=== PATIENT | female | born 1995 | race Caucasian/White ===

== ENCOUNTER 2025-04-11 22:23 | Inpatient (IN) | payer OTHER, SELFPAY ==
[2025-04-11 22:27] VITALS: BP 165/88; PULSE 118; RESP 20; O2SAT 97
--- NOTE | 2025-04-11 22:29 | ED.GENADUL_ITS ---
Discharge Plan Disposition Patient Disposition: Admit to [facility] Condition: Good Discharge Details Clinical Impression: Uterine contractions Admit Date/Time: 04/11/25 22:48 Admit Provider: Jhoana Dumont Attending Provider: Jhoana Dumont Primary Care Provider: Janelle,[facility] ED Provider: Tori Nelson Discharge Data Discharge Date/Time-TO BE ENTERED AT DEPARTURE: 04/11/25 22:44 HPI General Mode of arrival: ambulatory . Date/Time Provider Initiated Documentation: 04/11/25 22:29 . Limitations to Documentation: no limitations . Information obtained by: patient . HPI Narrative: 29yo F presenting with concern for active labor. Reports being 37w , 3 prior term births, vacationing in the area this week and gets care in [place]. States uncomplicated ellis , denies gestational debities, preeclampsia, or other complication. Water broke about 40 minutes ago, clear fluid. Having contractions about 5 minutes apart, lasting about 2 minutes at a time. Not feeling pressure or the urge to push. No other medical complaints. Related Data Allergies Allergy/AdvReac Type Severity Reaction Status Date / Time No Known Allergies Allergy Verified 04/11/25 23:40 Review of Systems Narrative: see HPI Exam Narrative Exam Narrative: General: Alert, well appearing, well nourished, in no acute distress. Head: Normocephalic, atraumatic Neck: Trachea midline, ?Neck supple. Cardiac: Well perfused. Resp: No respiratory distress. . : ?Gravid. No palpable ctx at this time. Medical Decision Making 29yo F presenting with concern for active labor. Reports being 37w , 3 prior term births, uncomplicated ellis ; vacationing in the area this week and gets care in [place]. Water broke about 40 minutes ago, clear fluid and she is having contractions about 5 minutes apart, lasting about 2 minutes at a time. No sensation of pressure or urge to push. Well appearing on exam, gravid abdomen with no palpable contraction. Delivery not imminent. Hypertensive SBP 160's and tachycardiac to 110's on arrival. Appropriate to go to L&D; taken upstairs in wheelchair. PFSH All Active Problems (Updated 04/12/25 @ 00:08 by Jhoana Dumont MD) Normal labor (Acute) cardiac anomaly affecting , antepartum (Acute) Obesity (Chronic) Marijuana use (Acute) Tobacco use (Acute) Anxiety and depression (Chronic) Uterine contractions (Acute) Social History Smoking/Tobacco Use Status: Current every day Tobacco Type: cigarettes Years smoked: 13 Tobacco: How many years used: 13 Smoking risk assessment performed?: Yes Alcohol Intake: current Drug use: Occasionally Substance use type: marijuana Housing: house Do you feel safe at home: Yes Do you feel safe in your relationship?: Yes History History 5 Para 3 Hx # Term Pregnancies 3 Multiple births Hx # Pregnancies Ectopic pregnancies AB induced Hx Number of Living Children 3 AB spontaneous
[2025-04-11 22:44] VITALS: BP 165/88; PULSE 118; RESP 20; O2SAT 97
[2025-04-11 23:11] VITALS: BP 121/64; PULSE 100
[2025-04-11 23:14] LABS: HCT 31.9 % (36.0-46.0); HGB 9.8 g/dL (11.2-15.7); MCH 22.8 pg (27.0-33.0); MCHC 30.7 % (32.0-36.0); MPV 11.7 fL (8.0-11.0); Platelet Count 270 10^3/uL (130-400); RBC 4.29 10^6/uL (3.93-5.22); RDW 17.8 % (11.7-14.6); RDW-SD 46.5 fL; WBC 14.26 10^3/uL (4.4-10.8)
--- NOTE | 2025-04-11 23:22 | ANES.PREOP_ITS ---
General Info Date of Service Date Performed: 04/11/25 Height: 5 ft 6 in Weight: 123.831 kg Body Mass Index (BMI): 44.0 Meds Allergies and Home Medications Allergies Allergy/AdvReac Type Severity Reaction Status Date / Time No Known Allergies Allergy Verified 04/11/25 23:40 Current Visit Medications: Current Medications Generic Name Dose Route Start Last Admin Trade Name Armandoq PRN Reason Stop Dose Admin Fentanyl/Ropivacaine 200 ml 04/11/25 23:30 Fentanyl/Ropivacaine 2 Mcg/Ml And 0.1% 200 Ml Cadd Cassette EP DIRECTED MERISSA Ringer's Solution 500 mls @ 500 mls/hr 04/11/25 23:18 IV 04/12/25 00:17 BOLUS ONE IV Miscellaneous Supplies 1 each 04/11/25 23:00 Iv Access IV DIRECTED MERISSA Sodium Chloride 0 ml 04/11/25 22:47 Normal Saline Flush 10 Ml Syr IVP PRN PRN Sodium Chloride 0 ml 04/12/25 08:30 Normal Saline Flush 10 Ml Syr IVP BID MERISSA Sodium Chloride 0 ml 04/11/25 22:47 Normal Saline 10 Ml Vial IJ DIRECTED PRN PFSH Active Problems Active Problems: Problem Status Onset Code Uterine contractions Acute O47.9 Tobacco Smoking/Tobacco Use Status: Current every day Tobacco Type: cigarettes Smoking cigarettes per day: 5 Years smoked: 13 Alcohol Alcohol Intake: current Substance Use Substance use: Occasionally Substance use type: marijuana Vital Signs and Lab Results Vital Signs Most Recent Vital Signs in EMR: Most Recent Vital Signs Pulse Resp BP Pulse Ox 100 H 20 121/64 97 04/11/25 23:11 04/11/25 22:44 04/11/25 23:11 04/11/25 22:44 Lab Results 04/11/25 23:05 Blood Type / Crossmatch: 2 Antibody Screen Pending Today Complete Blood Count: 2 WBC, (4.4-10.8) 14.26 10^3/uL H Today, 23:05 RBC, (3.93-5.22) 4.29 10^6/uL Today, 23:05 Hgb, (11.2-15.7) 9.8 g/dL L Today, 23:05 Hct, (36.0-46.0) 31.9 % L Today, 23:05 Plt Count, (130-400) 270 10^3/uL Today, 23:05 Anesthesia Assessment and Plan Anesthesia History Personal History: No History of Anesthesia Complications Family History: No Family History of Anesthesia Complications Exercise Tolerance Exercise Tolerance: Metabolic Equivalents>4 Pertinent Negatives Pertinent Negatives: No Major Cardiovascular Symptoms or Complaints and No Major Pulmonary Symptoms or Complaints Cardiac & Pulmonary Exam Cardiac Exam: Normal S1/S2 Heart Sounds Pulmonary Exam: Clear Bilateral Breath Sounds Implantable Cardiac Device Does patient have a Pacemaker or an ICD?: No Airway Exam Known Difficult Airway: No Mallampati Class: 3 Mouth Opening: Normal (> 3cm) Thyromental Distance: Greater than 3 cm Neck Range of Motion: Full ROM Neck Circumference: Thick Teeth Condition: Normal Dentition ASA Classification ASA Score: ASA 3 Emergency Case?: No NPO Status NPO Status: Full Stomach () Status Status: Confirmed Anesthesia Plan Resuscitation Status: Full Code Anesthesia Technique: Labor Epidural Airway Planned: Natural Airway Monitors Used: Standard Monitors
[2025-04-11 23:25] LABS: MCV 74 fL (80-95)
--- NOTE | 2025-04-11 23:40 | W.PM.OBHPL1 ---
Date of service: 04/11/25 Time of Service: 11:30 Assessment and Plan Assessment and plan (1) Uterine contractions: Status: Acute Assessment and plan: P3 @37.3wks with rupture of membranes and early labor. She did not receive care here as she is currently traveling. However we were able to get verbal report of her history and are awaiting the faxed records. She desires an epidural as her last labor went very quickly. Anesthesia is notified. Will draw basic labs and await records. Anticipate NVD. (2) cardiac anomaly affecting , antepartum: Status: Acute Assessment and plan: Per verbal report, the pt saw cardiology and is only recommended to f/u at 2wks after . (3) Anxiety and depression: Status: Chronic OB-HPI Labor/Delivery History of Present Illness Reason for Visit: in labor, not from here Chief Complaint: Uterine Contractions; Suspected Rupture of Membranes , Associated Signs and Symptoms of Suspected ROM: gush of fluid. SPIKE Calculator Estimated Delivery Date Method WG Current Estimate 04/29/25 Manual Infant Delivery Date-Baby A 04/12/25 37w 4d Comments: Pt reports gush of fluid around 9pm. They were visiting family in [place]. She arranged for her sister to watch their kids and headed this direction and on the way contractions started, still pretty mild, every few minutes. No bleeding. Feeling normal movement today. History of Present Expected Delivery Route/Plan VD Specific Issues/Plan 1. Smoker: 3-4 cigs/day 2. MJ use 3. Obesity 4. Anxiety/depression - no meds/stable 5. Mild anemia - on iron 6. Rh neg - rhogam 7. heart concern - Echo: Restrictive ductus arteriosus, mild R heart dilation - Cardiology recommends f/u at 2wks of life, nothing special at delivery NIPT: low risk, female GBS neg Review of Systems Constitutional Constitutional: Reports system reviewed and no additional complaints, except as documented Gastrointestinal Gastrointestinal: Denies nausea and Denies vomiting Genitourinary Genitourinary: Reports system reviewed and no additional complaints, except as documented Musculoskeletal Comments: No regular contractions PFSH All Active Problems (Updated 04/12/25 @ 00:08 by Jhoana Dumont MD) Normal labor (Acute) cardiac anomaly affecting , antepartum (Acute) Obesity (Chronic) Marijuana use (Acute) Tobacco use (Acute) Anxiety and depression (Chronic) Uterine contractions (Acute) Social History Smoking/Tobacco Use Status: Current every day Tobacco Type: cigarettes Years smoked: 13 Tobacco: How many years used: 13 Smoking risk assessment performed?: Yes Alcohol Intake: current Drug use: Occasionally Substance use type: marijuana Housing: house Do you feel safe at home: Yes Do you feel safe in your relationship?: Yes History History 5 Para 3 Hx # Term Pregnancies 3 Multiple births Hx # Pregnancies Ectopic pregnancies AB induced Hx Number of Living Children 3 AB spontaneous Meds Allergies and Home Medications Allergies Allergy/AdvReac Type Severity Reaction Status Date / Time latex AdvReac Mild Hives Verified 04/12/25 01:32 Exam Physical Exam Vital signs: Pulse Resp BP Pulse Ox 100 H 20 121/64 97 04/11/25 23:11 04/11/25 22:44 04/11/25 23:11 04/11/25 22:44 Vital Signs Reviewed: Yes Detailed Labor and Delivery Exam Dilation: 1 Ferraro Score: Cervical Points Exam 0 1 2 3 Dilation Closed 1-2cm 3-4 cm 5-6cm Effacement 0-30% 40-50% 60-70% 80% Consistency Firm Medium Soft Station -3 -2 -1,0 +1,+2 Position Posterior Mid Anterior Comments: Exam by CNM, pt grossly ruptured, clear fluid Fetus A Heart Rate Baseline: 155 Monitor Accelerations: 15 X 15 Monitor Decelerations: None Variability: Moderate (6-25 BPM) Presentation: Cephalic (confirmed on bedside sono by CNM) Date of Membrane Rupture: 04/12/25 Time of Membrane Rupture: 21:00 Detailed HEENT Exam Head: Present normocephalic and atraumatic Detailed Abdominal Exam Comments: gravid, nontender Detailed Neurological Exam Neurological: Present alert, oriented X3 and CN II-XII intact DetailedPsychiatric Exam Psychiatric: Present normal affect, normal thought process and cooperative Results Results Group Beta Strep: Negative Abnormal Lab Findings: Abnormal Labs 04/11/25 23:05 WBC 14.26 H Hgb 9.8 L Hct 31.9 L MCV 74 L MCH 22.8 L MCHC 30.7 L RDW 17.8 H MPV 11.7 H Risk Assessment Risks Reviewed Risks Reviewed Upon Admission: Yes
[2025-04-11 23:57] VITALS: BMI 44.0
[2025-04-12] VITALS (190 sets, daily range): BP systolic 101–137; BP diastolic 55–76; PULSE 0–123; RESP 12–17; TEMP 36.3–37.5; O2SAT 84–100
--- NOTE | 2025-04-12 00:44 | W.ANESNEU ---
Epidural/Spinal Catheter Date Performed: 04/12/25 Procedure Start: 00:02 Procedure Stop: 00:45 Requesting Provider: Jhoana Dumont Procedure Location: Obstetrics Reason Performed: Labor Epidural Standard Monitors Applied: Blood Pressure, SpO2 and See EMR for corresponding vital signs Patient Position: Sitting Sedation Given (Indicate Dose Given): No Sedation given Patient Mental Status: Awake Sterility: Hand Hygiene, Surgical Cap, Surgical Mask, Sterile Gloves, Sterile Drape/Sheet and Chlorhexidine Procedure Location: L4-L5 Interspace Epidural Needle: Tuohy 18 Gauge Needle Length: 3.5 Inch Needle Approach: Midline Epidural Procedure: Skin Prepped, Sterile Drape Placed, 1% Lidocaine to skin and subcutaneous tissue with 25G needle, Tuohy Needle placed, JUANIS to Saline Used, Epidural Catheter Placed, Negative Heme, Negative CSF Flow and Tuohy Needle Removed Catheter Placed?: Catheter Placed Test Dose (Indicate Dose Given): 3ml 1.5% Lidocaine with 1:200K Epinephrine Given (@0014) and Negative Test Dose Loss of Resistance Depth (cm): 9 Catheter depth at skin (cm): 15 Dressing: Sorbaview Dressing Placed and Mastisol Used Epidural Provider Bolus (Indicate Dose Given): Total bolus dose given in 3-5 ml divided doses (@0020) and Total Ropivacaine 0.1% with Fentanyl 2mcg/ml Given from pump. (ml) Dose:: 5ml + 3ml =8 mL Additives (Indicate Dose Given ): None Infusion Medication: Medication Infusion Began Medication Infusion: Ropivacaine 0.1% with Fentanyl 2mcg/ml (@0020) Maintenance Infusion Rate (ml/hour): 10 PCEA Bolus Dose (ml): 5 Post Procedure Pain score (0-10): 0 Block Level: N/A Paresthesia: Left Paresthesia Duration: Transient Ultrasound: Not Used Number of Attempts (See previous attempts in note section): 2 Procedure Tolerated: No Complications and Patient tolerated well Procedure Outcome: Successful Procedure Comment:: Difficult to definitively palpate spinous processes, unsuccessful at L3-4, success at L4-5, JUANIS at needle hub. Performed By: Shamika Hobbs
[2025-04-12] MEDS: FentaNYL/ROPIvacaine 2 mcg/ml and 0.1% 200 ML CADD Cassette EP (00:45)
[2025-04-12] MEDS: Lactated Ringers 1,000 ML 125 ML IV (00:50)
[2025-04-12] MEDS: Oxytocin/Normal Saline 30 UNIT/500 ML BAG 2 UNITS IV (01:56)
[2025-04-12] MEDS: Lactated Ringers 250 ML 500 ML IV (02:03)
--- NOTE | 2025-04-12 07:15 | W.PM.OBNL1 ---
Date of service: 04/12/25 Time of Service: 07:15 Pelvic Exam Dilation: 3 Effacement (%): 70 station: -4 Comments: Cephalic presentation confirmed by bedside sono. Contractions Contraction Frequency(min): 1-4 Fetus A Heart Rate Baseline: 135 Presentation: Cephalic Variability: Moderate (6-25 BPM) Categories: Category I Accelerations: 15 X 15 Decelerations: None Assessment and Plan Assessment and plan (1) Normal labor: Status: Acute Assessment and plan: Will get up and start changing positions to allow for baby to come into the pelvis better. Objective Abnormal lab results 04/11/25 Range/Units 23:05 WBC 14.26 H (4.4-10.8) 10^3/uL Hgb 9.8 L (11.2-15.7) g/dL Hct 31.9 L (36.0-46.0) % MCV 74 L (80-95) fL MCH 22.8 L (27.0-33.0) pg MCHC 30.7 L (32.0-36.0) % RDW 17.8 H (11.7-14.6) % MPV 11.7 H (8.0-11.0) fL Temp Pulse Resp BP Pulse Ox 99.0 F 85 17 125/70 99 04/12/25 06:53 04/12/25 07:14 04/12/25 04:20 04/12/25 06:54 04/12/25 00:16 Laboratory Results WBC 14.26 10^3/uL (4.4-10.8) H 04/11/25 23:05 RBC 4.29 10^6/uL (3.93-5.22) 04/11/25 23:05 Hgb 9.8 g/dL (11.2-15.7) L 04/11/25 23:05 Hct 31.9 % (36.0-46.0) L 04/11/25 23:05 MCV 74 fL (80-95) L 04/11/25 23:05 MCH 22.8 pg (27.0-33.0) L 04/11/25 23:05 MCHC 30.7 % (32.0-36.0) L 04/11/25 23:05 RDW 17.8 % (11.7-14.6) H 04/11/25 23:05 Plt Count 270 10^3/uL (130-400) 04/11/25 23:05 MPV 11.7 fL (8.0-11.0) H 04/11/25 23:05 ABO/Rh A Negative 04/11/25 23:05 Antibody Screen NEGATIVE 04/11/25 23:05 Vital Signs Reviewed: Yes Subjective Interval history since last seen: Pt received her epidural and was able to get some rest. When she set up to use the bedpan she felt increased pelvic pressure. Still leaking some clear fluid. Results Hemoglobin/Hematocrit: Hgb 9.8 g/dL (11.2-15.7) L 04/11/25 23:05 Hct 31.9 % (36.0-46.0) L 04/11/25 23:05 Abnormal Lab Findings: Abnormal Labs 04/11/25 23:05 WBC 14.26 H Hgb 9.8 L Hct 31.9 L MCV 74 L MCH 22.8 L MCHC 30.7 L RDW 17.8 H MPV 11.7 H
--- NOTE | 2025-04-12 12:17 | W.OBDELIVERY ---
Date of service: 04/12/25 Time of Service: 10:30 OB Labor/ Delivery Information Providers Doctor: Jhoana Dumont Nurse: Jeannine Loja Nurse: Lavonne Hunt Labor/Delivery Information Number of Babies in Womb: 1 Steroids Given: None Reason Steroids Not Administered: N/A Group Beta Strep: Done-Result Unknown Antibiotics Administered: No Blood Type: A- Medication in Delivery: ropivicaine, pitocin Maternal Complications: None Note: Jolly is a P3 who experienced PROM at 37.3wks. She received an epidural in anticipation of pain management and was started on pitocin. About 9hrs later she was found to be fully dilated. She pushed twice to deliver the infant's head in REGULO position followed by the shoulders and the rest of the body. The baby was placed on mom's abdomen. After >1min the cord was clamped x2 and cut. Cord blood collected. The placenta delivered with gentle cord traction and fundal massage and appeared intact. Fundus was firm with good hemostasis. Mom and baby stable at time of note. Stages of Labor Onset of Labor Date: 04/11/25 Onset of Labor Time: 21:02 Complete Dilatation Date: 04/12/25 Complete Dilatation Time: 10:05 Labor - Stage 1 Duration: 13 hours and 3 minutes ROM Baby A: 04/11/25 ROM Baby A: 21:02 Infant Delivery Date-Baby A: 04/12/25 Infant Delivery Time-Baby A: 10:33 Labor Stage 2 Duration: 28 minutes Placenta Delivery Date-Baby A: 04/12/25 Placenta Delivery Time-Baby A: 10:37 Labor-Stage 3 Duration: 4 minutes Total Length of Labor-Baby A: 13 hours and 31 minutes Placenta Cultured: No Placenta Status: Delivered Baby A Infant Gender: Female Gestational Status: Early Term (37-38.6 wks) Gestational Age in Weeks/Days: 37 Weeks and 4 Days Score-1 Minute Interval(Baby A) Heart Rate-1 minute: 100 BPM or Greater Respiratory Effort- 1 minute: Spontaneous/Strong Cry Muscle Tone-1 minute: Active Movement Reflex Response-1 minute: Prompt Response Color-1 minute: Bluish Hands or Feet Total Score-1 minute: 9 Score-5 Minute Interval(Baby A) Heart Rate- 5 minute: 100 BPM or Greater Respiratory Effort-5 minute: Spontaneous/Strong Cry Muscle Tone-5 minute: Active Movement Reflex Response-5 minute: Prompt Response Color-5 minute: Bluish Hands or Feet Total Score- 5 minute: 9
[2025-04-12] MEDS: Hamamelis Leaf/Glycerin 100 EACH BOX PR (12:57)
[2025-04-12] MEDS: Ibuprofen 600 MG TAB PO ×2 (12:57→18:57)
[2025-04-12] MEDS: Dibucaine 1% 28 GM TUBE TP (12:57)
[2025-04-12] MEDS: Acetaminophen 325 MG TAB 650 MG PO ×2 (13:40→17:41)
--- NOTE | 2025-04-12 16:47 | W.ANESPOSTOP ---
Postoperative Evaluation Date, Time and Location Date Performed: 04/12/25 Time Performed: 16:44 Patient Location: Obstetrics Vital Signs Most Recent Imported Vital Signs: Most Recent Vital Signs Temp Pulse Resp BP Pulse Ox 36.5 C 76 12 101/56 L 96 04/12/25 14:58 04/12/25 14:58 04/12/25 14:58 04/12/25 14:58 04/12/25 14:58 Pain Score Most Recent Pain Score: Most Recent Pain Score Pain Level 4 04/12/25 13:40 Assessment Mental Status: Awake (Alert & Oriented to Patient Baseline) Airway and Respiratory Function: Patent airway with normal (patient baseline) respiratory exam Cardiovascular Function: Hemodynamically Stable Hydration Status: Adequately Hydrated Nausea & Vomiting: No Nausea or Vomiting Pain: Pain is tolerable per patient Peripheral Nerve Block: Patient did not receive a nerve block
[2025-04-13 01:25] VITALS: BP 116/72; PULSE 75; RESP 17; TEMP 36.8; O2SAT 98
[2025-04-13] MEDS: Ibuprofen 600 MG TAB PO (07:42)
[2025-04-13 09:00] VITALS: BP 119/76; PULSE 70; RESP 12; TEMP 36.5; O2SAT 99
--- NOTE | 2025-04-13 09:27 | DSE_ITS ---
Date of service: 04/13/25 Time of Service: 09:27 DS: Diagnosis Discharge Diagnosis (1) care and examination immediately after delivery: Status: Acute Asessment and Plan: P4 PPD#1 s/p NVD at 37.4wks. She is doing well almost 24hrs pp. Anticipate d/c home after the baby is cleared at 24hrs. (2) cardiac anomaly affecting , antepartum: Status: Acute Asessment and Plan: Will follow up with cardiology back at home. (3) Anxiety and depression: Status: Chronic Asessment and Plan: Using coping skills Discharge Plan Disposition Patient Disposition: Home Condition: Stable Discharge Details Reason For Visit: in labor, not from here Admit Date/Time: 04/11/25 22:48 Admit Provider: Jhoana Dumont Attending Provider: Jhoana Dumont Primary Care Provider: Janelle,[facility] Course Hospital Course: Pt arrive with ROM, received an epidural for anticipated pain management, was started on pitocin for augmentation and proceeded to have an uncomplicated vaginal delivery and course. Discharge Instructions Activity:: Nothing in the vagina Equipment/Supplies:: No Equipment Needed Diet:: As Tolerated Discharge Orders Discharge Orders: Discharge Order (Routine); Ordered 04/13/25 Ordered By: Jhoana Dumont OB:DS Summary Summary Episiotomy Description: None Contraception Discussed Contraception Discussed: Yes Contraceptive Plan: Undecided, [place] Infant Gender-Baby A: Female weight: 6 lb 11.938 oz Status at Discharge Functional status at discharge: independent ambulation Overall status at discharge: patient is back to baseline Mental Status: mental status grossly normal Speech and Movement: speech and movement normal Mood: congruent mood Affect: normal affect Exam Physical Exam Vital signs: Temp Pulse Resp BP Pulse Ox 98.2 F 75 17 116/72 98 04/13/25 01:25 04/13/25 01:25 04/13/25 01:25 04/13/25 01:25 04/13/25 01:25 [facility] All Active Problems (Updated 04/13/25 @ 09:27 by Jhoana Dumont MD) care and examination immediately after delivery (Acute) Normal labor (Acute) cardiac anomaly affecting , antepartum (Acute) Obesity (Chronic) Marijuana use (Acute) Tobacco use (Acute) Anxiety and depression (Chronic) Uterine contractions (Acute) Social History Smoking/Tobacco Use Status: Current every day Tobacco Type: cigarettes Years smoked: 13 Tobacco: How many years used: 13 Smoking risk assessment performed?: Yes Alcohol Intake: current Drug use: Occasionally Substance use type: marijuana Housing: house Do you feel safe at home: Yes Do you feel safe in your relationship?: Yes History History 5 Para 3 Hx # Term Pregnancies 3 Multiple births Hx # Pregnancies Ectopic pregnancies AB induced Hx Number of Living Children 3 AB spontaneous DS: Data Vitals/I&O Vitals and I&O: Vital Signs Temperature 98.2 F 04/13/25 01:25 Temperature Source Forehead 04/13/25 01:25 Pulse 75 04/13/25 01:25 Pulse Rhythm Regular 04/12/25 19:30 Respiratory Rate 17 04/13/25 01:25 Respiratory Depth Normal 04/12/25 19:30 Blood Pressure 116/72 04/13/25 01:25 Blood Pressure Mean 86 04/13/25 01:25 Blood Pressure Position Sitting 04/11/25 22:27 Pulse Oximetry 98 04/13/25 01:25 Oxygen Delivery Method Room Air 04/11/25 22:27 Oxygen Flow Rate 0 04/11/25 22:27 Pain Level 5 04/13/25 07:42 Intake & Output 04/12/25 04/12/25 04/13/25 11:59 23:59 11:59 Intake Total 27.133 / 27.133 Output Total 800 / 800 Balance -772.867 / -772.867 Intake: IV 27.133 / 27.133 Output: Urine 800 / 800 Other: Urine Color Pale Yellow Yellow Urine Appearance Clear Urine Odor None Comment OOB to bathroom
== END 2025-04-13 12:20 | disposition home or self-care (01) | DRG 807 ==
LOC: ER 22:32 → BCD 22:33 → OBS 22:51
PROVIDERS: Admitting Provider Obstetrics & Gynecology; Emergency Provider Student in an Organized Health Care Education/Training Program; Visit Provider Obstetrics & Gynecology
DX: O35.BXX0 Maternal care for other (suspected) fetal abnormality and damage, fetal cardiac anomalies, not applicable or unspecified (principal); Z37.0 Single live birth; O99.344 Other mental disorders complicating childbirth; F41.9 Anxiety disorder, unspecified; Z3A.37 37 weeks gestation of pregnancy
CPT/HCPCS: 36415; 85027; 86850; 86900; 86901; 99285; 59200; J0665